=== PATIENT | female | born 1995 | race Caucasian/White ===

== ENCOUNTER 2020-08-30 10:59 | Emergency (ER) | payer OTHER ==
[2020-08-30 11:42] LABS: HEMOGLOBIN 11.5 gm/dl (12.3-15.3); RED BLOOD COUNT 4.16 M/UL (4.00-5.10); WHITE BLOOD COUNT 5.9 K/UL (4.5-11.0)
[2020-08-30 11:58] LABS: BUN/CREATININE RATIO 21 (0-10)
[2020-08-30] MEDS ORDERED: VENTOLIN HFA 66.7 GM INH (16:22)
[2020-08-30] MEDS ORDERED: TESSALON PERLE100 MG PO (16:22)
== END 2020-08-30 16:29 | disposition home or self-care (01) ==
LOC: ER1 10:59
PROVIDERS: Emergency Medicine
DX: J40 Bronchitis, not specified as acute or chronic (principal)
CPT/HCPCS: 71046; 80048; 82550; 82553; 83874; 84484; 84703; 85025; 85379; 87081; 87880; 96374; 96375; 99285; J1200; J2930; J7030; Q9967

== ENCOUNTER → 2021-02-16 | Outpatient (CLI) | payer OTHER ==
[~2021-02-16] MED LIST: TESSALON PERLE100 MG PO; VENTOLIN HFA 66.7 GM INH
== END ==
LOC: HEART 5 14:46
DX: R06.00 Dyspnea, unspecified (principal)
CPT/HCPCS: 94010

== ENCOUNTER 2021-03-21 12:43 | Emergency (ER) | payer OTHER | END 2021-03-21 13:30 | disposition E | LOC: ER1 12:43 | DX: R10.84 Generalized abdominal pain (principal); I10 Essential (primary) hypertension; R11.2 Nausea with vomiting, unspecified | CPT/HCPCS: 99283 ==